=== PATIENT | female | born 1975 | race Caucasian/White ===

== ENCOUNTER 2018-01-05 09:10 | Outpatient (CLI) | payer OTHER ==
[2018-01-05] MEDS ORDERED: GADOPENTETATE DIMEGLUMINE 5 ML VIAL IVP ONE ×2 (09:49→10:25)
[2018-01-05] MEDS ORDERED: IOTHALAMATE MEGLUMINE 50 ML VIAL ONE (09:49)
[2018-01-05] MEDS ORDERED: IOTHALAMATE MEGLUMINE 50 ML VIAL IVP ONE (10:25)
[2018-01-05] MEDS ORDERED: BUFFERED LIDOCAINE 10 ML SYRINGE IU ONE (10:25)
--- NOTE | 2018-01-05 10:45 | XRAY Report ---
Procedure Date: 01/05/2018 Accession Number: [id number] / [id number] Procedure: FL - Arthrogram Needle Placement CPT Code: FULL RESULT: EXAM: Arthrogram Needle Placement DATE: 01/05/2018 10:22 AM CLINICAL HISTORY: ROTATOR CUFF TEAR, RIGHT COMPARISON: None TECHNIQUE: Following obtaining informed consent, the patient's right shoulder was prepped and draped in the usual sterile fashion. The skin and soft tissues were anesthetized with buffered lidocaine. A spinal needle was inserted into the right glenohumeral joint space, and following confirmation of needle positioning, a combination of iodinated contrast, dilute gadolinium, and lidocaine was injected intra-articularly. The patient tolerated the procedure well. No immediate complications. FINDINGS: Spot image demonstrates no evidence of contrast extravasation. IMPRESSION: Successful right shoulder injection for MRI arthrogram. Fluoroscopy time: 34 seconds; one spot image obtained.
--- NOTE | 2018-01-05 16:02 | MRI Report ---
Procedure Date: 01/05/2018 Accession Number: [id number] / [id number] Procedure: MRI - Arthrogram Shoulder RT CPT Code: FULL RESULT: EXAM: RIGHT SHOULDER MRI ARTHROGRAM WITH CONTRAST EXAM DATE: 01/05/2018 10:54 AM. CLINICAL HISTORY: Rotator cuff tear, right. COMPARISON: Right shoulder radiography from 11/22/2017. TECHNIQUE: Multiplanar, multisequence T1-weighted and fluid-sensitive sequences of the shoulder after an arthrographic injection of dilute gadolinium, dictated under a separate exam. Other: None. FINDINGS: Acromioclavicular Region: The acromion is type I. Mild to moderate acromioclavicular joint osteoarthrosis. Mild marrow edema at the distal end of the clavicle and at the medial aspect of the acromion, adjacent to the acromioclavicular joint. The coracoacromial and coracoclavicular ligaments are intact. There is no contrast or fluid in the subacromial/subdeltoid bursa. Glenohumeral Region: No subluxation. No loose bodies. The articular cartilage is unremarkable. The glenohumeral ligaments and joint capsule are unremarkable. Bone Marrow: No acute fracture or bone lesions. Labrum: The labrum is unremarkable. Biceps Tendon: The long head of the biceps tendon and biceps mary are intact. Musculature/Rotator Cuff: There is supraspinatus and distal calcific infraspinatus tendinosis. The teres minor and subscapularis tendons are unremarkable. No rotator cuff tear. No edema or fatty atrophy. Other: The subcutaneous tissues are unremarkable. IMPRESSION: 1. Supraspinatus and distal calcific infraspinatus tendinosis. No rotator cuff tear. 2. No labral tear. 3. [id number] acromioclavicular joint osteoarthrosis. [facility] MUSCULOSKELETAL RADIOLOGY SECTION
== END 2018-01-05 09:11 | disposition home or self-care (01) ==
LOC: DI 09:10
PROVIDERS: ATTEND Orthopaedic Surgery
DX: M75.91 Shoulder lesion, unspecified, right shoulder (principal); M19.011 Primary osteoarthritis, right shoulder
CPT/HCPCS: 23350; 73222; 77002; Q9961

== ENCOUNTER 2018-04-21 21:51 | Outpatient (CLI) | payer OTHER | END 2018-04-21 21:52 | disposition critical access hospital (66) | LOC: EMS 21:51 | PROVIDERS: ATTEND Surgery | DX: R51 Headache (principal); R09.89 Other specified symptoms and signs involving the circulatory and respiratory systems | CPT/HCPCS: A0425; A0429 ==

== ENCOUNTER 2018-04-21 22:10 | Emergency (ER) | payer OTHER ==
[2018-04-21] MEDS ORDERED: LORazepam 2 MG/ML VIAL IVP STA (22:34)
[2018-04-21] MEDS ORDERED: SODIUM CHLORIDE 0.9% 1,000 ML IV ONE (22:34)
--- NOTE | 2018-04-21 22:41 | ED Physician Documentation ---
History of Present Illness - Stated complaint Stated Complaint: NOT FEELING WELL, DIZZY, ANXIOUS - Chief complaint Chief Complaint: General - History obtained from History obtained from: Patient - History of Present Illness Timing: Today (This is a 43-year-old woman who is maintained on verapamil for with which she has been compliant for history of reversible vasospasm cerebral spasm. She used some marijuana tincture tonight and then developed some vertigo type dizziness and felt unsteady and developed a posterior headache. She said is not nearly as severe as previous R VCS. She is concerned about it though. She is anxious.) Review of Systems Constitutional: denies: Fever, Chills Eyes: denies: Loss of vision, Decreased vision, Photophobia, Discharge, Irritation Nose: denies: Rhinorrhea / runny nose, Congestion PD PAST MEDICAL HISTORY - Past Medical History Past Medical History: Yes Cardiovascular: High cholesterol Psych: Anxiety - Past Surgical History Past Surgical History: Yes - Present Medications Home Medications: Ambulatory Orders Medication Instructions Recorded Confirmed FLUoxetine [PROzac] 40 mg PO DAILY 04/21/13 12/16/14 Atorvastatin [Lipitor] 20 mg PO DAILY 12/16/14 12/16/14 Verapamil ER [Calan SA] 180 mg PO DAILY 04/21/18 04/21/18 - Allergies Allergies/Adverse Reactions: Allergies Allergy/AdvReac Type Severity Reaction Status Date / Time peanut Allergy Anaphylaxis Verified 04/21/18 22:16 amoxicillin AdvReac Unknown Rash Verified 04/21/18 22:16 Sulfa (Sulfonamide AdvReac Unknown Rash Verified 04/21/18 22:16 Antibiotics) walnuts Allergy Anaphylaxis Uncoded 04/21/18 22:16 - Social History Does the pt smoke?: No Smoking Status: Never smoker Does the pt drink ETOH?: No Does the pt have substance abuse?: No Substance Use and Type: Marijuana - Immunizations Immunizations are current?: Yes - POLST Patient has POLST: No POLST Status: Full Code PD ED PE NORMAL - Vitals Vital signs reviewed: Yes - General General: Alert and oriented X 3 (Anxious) - HEENT HEENT: PERRL, EOMI - Neck Neck: Supple, no meningeal sign, No bony TTP - Cardiac Cardiac: RRR, No murmur - Respiratory Respiratory: No respiratory distress, Clear bilaterally - Abdomen Abdomen: Non tender - Back Back: No CVA TTP, No spinal TTP - Derm Derm: Normal color, Warm and dry - Extremities Extremities: No edema, No calf tenderness / cord - Neuro Neuro: Alert and oriented X 3, bobbin winder 2-12 intact Eye Opening: Spontaneous Motor: Obeys Commands Verbal: Oriented GCS Score: 15 - Psych Psych: Normal mood Results - Vitals Vitals: Vital Signs - 24 hr 04/21/18 04/21/18 04/21/18 22:11 23:14 23:18 Temperature 37.3 C Heart Rate 124 H 128 H 134 H Respiratory 17 18 24 Rate Blood Pressure 163/89 H 157/92 H 153/76 H O2 Saturation 98 94 96 04/21/18 23:22 Temperature Heart Rate 126 H Respiratory 16 Rate Blood Pressure 159/71 H O2 Saturation 94 Oxygen O2 Source Room air PD MEDICAL DECISION MAKING - ED course ED course: 43-year-old woman with history of reversible cerebral vasospasm syndrome Who is maintained on Verapamil for same presents with headache after using marijuana drops. It is less severe than previous diagnosis, the headache that is. Head CT looks negative. She is obviously very anxious. She really had no response to Ativan. We discussed this at length. I offered to call [facility], she said that the plan in the future is if she ever had it again she would simply restart her nadolol for a few days. She was given a small dose of diltiazem and metoprolol IV For potential R CVS, she did not want me to call [facility]. Of note this also may be Due to cannabis drops which she took prior to the headache starting and that may be causing the anxiety as well. - Sepsis Event Vital Signs: Vital Signs - 24 hr 04/21/18 04/21/18 04/21/18 22:11 23:14 23:18 Temperature 37.3 C Heart Rate 124 H 128 H 134 H Respiratory 17 18 24 Rate Blood Pressure 163/89 H 157/92 H 153/76 H O2 Saturation 98 94 96 04/21/18 23:22 Temperature Heart Rate 126 H Respiratory 16 Rate Blood Pressure 159/71 H O2 Saturation 94 Oxygen O2 Source Room air Departure - Departure Disposition: 01 Home, Self Care Clinical Impression: Headache Condition: Stable Record reviewed to determine appropriate education?: Yes Comments: I would go ahead and take your nadolol for a few days. Return if worse or if new symptoms develop or if headache is persistent or recurrent.
[2018-04-21] MEDS ORDERED: diltiaZEM INJ 5 MG/ML VIAL IVP STA (23:07)
[2018-04-21] MEDS ORDERED: MORPHINE 2 MG/ML CARPUJECT IVP STA (23:31)
[2018-04-21] MEDS ORDERED: METOPROLOL 5 MG/5 ML VIAL IVP STA (23:31)
--- NOTE | 2018-04-21 23:42 | CT Report ---
Reason: headache Procedure Date: 04/21/2018 Accession Number: [id number] / [id number] Procedure: CT - Head W/O CPT Code: FULL RESULT: EXAM: CT HEAD EXAM DATE: 04/21/2018 11:05 PM. CLINICAL HISTORY: Headache. COMPARISON: HEAD ANGIO 06/13/2014 7:55 PM HEAD W/O 06/10/2014 9:58 PM. TECHNIQUE: Multiaxial CT images were obtained from the foramen magnum to the vertex. Reformats: Coronal. IV contrast: None. In accordance with CT protocol optimization, one or more of the following dose reduction techniques were utilized for this exam: automated exposure control, adjustment of mA and/or KV based on patient size, or use of iterative reconstructive technique. FINDINGS: Parenchyma: No intraparenchymal hemorrhage. No evidence of mass, midline shift, or CT findings of infarction. Archuleta-white differentiation is distinct. Extraaxial Spaces: Normal for age. No subdural or epidural collections identified. Ventricles: Normal in size and position. Sinuses and Orbits: Imaged paranasal sinuses, orbits, and mastoids show no significant abnormality. Bones: No evidence of fracture or calvarial defect. Other: None. IMPRESSION: Normal head CT. [facility]
[2018-04-22 00:20] VITALS: BP 148/75
== END 2018-04-22 00:22 | disposition home or self-care (01) ==
LOC: EDUNIT# → ED 22:10
DX: R51 Headache (principal); I67.841 Reversible cerebrovascular vasoconstriction syndrome
CPT/HCPCS: 70450; 96361; 96374; 96375; 99283; 99284; J2060